=== PATIENT | female | born 1995 ===

== ENCOUNTER 2018-12-13 22:53 | Emergency (ER) | payer SELFPAY ==
[2018-12-13 22:57] VITALS: O2SAT 98
--- NOTE | 2018-12-13 23:32 | ED PDOC ---
HPI: Psych/Substance Abuse Time Seen by Provider: 12/13/18 23:06 Chief Complaint (Nursing): Psychiatric Evaluation History Per: Patient History/Exam Limitations: no limitations Current Symptoms Are (Timing): Better Additional Complaint(s): 23 year old F with history of panic attacks presenting with anxiety. Patient states she had an argument with her boyfriend today and she ran from the house because she wanted to be alone. Denies suicidal or homicidal ideation. States she has not seen a therapist in over 10 years and does not take medication. States she had "very bad news" a few weeks ago and has had difficulty coping. Denies drugs or alcohol today. States that she is starting to feel better, but has as throbbing headache. Past Medical History Reviewed: Historical Data, Nursing Documentation, Vital Signs Vital Signs: Last Vital Signs Temp 98.1 F 12/13/18 22:56 Pulse 95 H 12/13/18 22:56 Resp 16 12/13/18 22:56 BP 113/74 12/13/18 22:56 Pulse Ox 98 12/13/18 22:56 - Medical History PMH: Anxiety - Family History Family History: States: Unknown Family Hx - Home Medications Home Medications: Ambulatory Orders Medication Instructions Recorded Aspirin/Acetaminophen/Caffeine 1 each PO Q8 PRN #30 tablet 12/14/18 [Excedrin Migraine Geltab] hydrOXYzine HCl [Atarax] 25 mg PO Q8H PRN #30 tab 12/14/18 - Allergies Allergies/Adverse Reactions: Allergies Allergy/AdvReac Type Severity Reaction Status Date / Time No Known Allergies Allergy Verified 12/13/18 22:55 Review of Systems ROS Statement: Except As Marked, All Systems Reviewed And Found Negative Psych: Positive for: Anxiety. Negative for: Depression, Psychosis, Suicidal ideation Physical Exam - Reviewed Nursing Documentation Reviewed: Yes Vital Signs Reviewed: Yes - Physical Exam Appears: Positive for: Well, Non-toxic, No Acute Distress Head Exam: Positive for: ATRAUMATIC, NORMAL INSPECTION, NORMOCEPHALIC Skin: Positive for: Normal Color, Warm, DRY Eye Exam: Positive for: EOMI, Normal appearance, PERRL ENT: Positive for: Normal ENT Inspection Neck: Positive for: Normal, Painless ROM Cardiovascular/Chest: Positive for: Regular Rate, Rhythm Respiratory: Positive for: CNT, Normal Breath Sounds Gastrointestinal/Abdominal: Positive for: Normal Exam, Soft Back: Positive for: Normal Inspection Extremity: Positive for: Normal ROM Neurological/Psych: Positive for: Awake, Alert, Normal Tone, Oriented, Mood/Affect (Anxious appearing). Negative for: Motor/Sensory Deficits - ECG O2 Sat by Pulse Oximetry: 98 Pulse Ox Interpretation: Normal Medical Decision Making Medical Decision Making: A/P: Hx of anxiety presenting with anxiety attack, panic --Patient is not suicidal or homicidal at this time --Will give atarax and NSAID and observe in ED for resolution of symptoms 1AM --Patient still having headache, APAP ordered 3AM --Patient sleeping soundly 345AM --Patient no longer feeling anxious or headache --Will prescribe atarax and excedrin, will refer to [facility] --Well appearing upon discharge Disposition - Clinical Impression Clinical Impression: Panic attack - Patient ED Disposition Is Patient to be Admitted: No - Disposition Referrals: [facility]] Disposition: Routine/Home Disposition Time: 03:46 Condition: IMPROVED Prescriptions: Aspirin/Acetaminophen/Caffeine [Excedrin Migraine Geltab] 1 each PO Q8 PRN #30 tablet PRN Reason: Pain, Moderate (4-7) hydrOXYzine HCl [Atarax] 25 mg PO Q8H PRN #30 tab PRN Reason: Anxiety Instructions: Anxiety, Adult (DC) Forms: [email or web address] ([place])
[2018-12-14 05:08] VITALS: BP 100/54; PULSE 64; RESP 17; TEMP 97.8
== END 2018-12-14 04:10 | disposition home or self-care (01) ==
LOC: H.ER 22:53
DX: F41.0 Panic disorder [episodic paroxysmal anxiety] (principal); Z00.8 Encounter for other general examination